=== PATIENT | male | born 1980 | race Caucasian/White ===

== ENCOUNTER 2016-08-12 15:08 | Emergency (ER) | payer MEDICAID, OTHER ==
[2016-08-12] MEDS ORDERED: DIPH/PERTUSS(ACELL)/TETANUS VAC/PF 0.5 ML SYR (>=10YO) IM ONE (15:59)
[2016-08-12] MEDS ORDERED: DIPHENHYDRAMINE HCL 50 MG CAPSULE PO ONE (16:00)
[2016-08-12] MEDS ORDERED: OXYCODONE-ACETAMINOPHEN 5-325 MG TABLET PO ONE (16:01)
--- NOTE | 2016-08-12 16:05 | ER Document Report ---
ED Medical Screen (RME) - General Chief Complaint: Laceration Stated Complaint: LEFT HAND INJURY Time Seen by Provider: 08/12/16 15:59 Notes: Patient injured his hand this afternoon at work. He was holding a piece of aluminum which twisted around and cut the tops of his fourth and fifth fingers of the left hand as well as a small section of the distal lateral palm. Has superficial skin evulsion of the dorsal aspect of fingers #4 and #5. The metal piece also struck the patient in the left flank and upper hip area and he says the pain goes around his left abdomen into the left testicle, although he did not hit the testicle itself. Patient is on Suboxone and did take it early this morning. TRAVEL OUTSIDE OF THE [place] IN LAST 30 DAYS: No - Related Data Allergies/Adverse Reactions: hydrocodone [Hydrocodone] Allergy (Intermediate, Verified 08/12/16 15:13) itch,hives oxycodone [Oxycodone] Allergy (Intermediate, Verified 08/12/16 15:13) itch,hives tramadol [Tramadol] Allergy (Verified 08/12/16 15:13) Past Medical History - Past Medical History Cardiac Medical History: Reports: Hx Hypertension Denies: Hx Coronary Artery Disease, Hx Heart Attack Pulmonary Medical History: Denies: Hx Asthma, Hx Bronchitis, Hx COPD, Hx Pneumonia Neurological Medical History: Reports: Hx Seizures. Denies: Hx Cerebrovascular Accident Renal/ Medical History: Denies: Hx Peritoneal Dialysis Musculoskeltal Medical History: Reports Hx Arthritis - hands,knees,ankles Past Surgical History: Reports: Hx Appendectomy, Hx Orthopedic Surgery - right shoulder/right ankle - Immunizations Immunizations up to date: Yes Hx Diphtheria, Pertussis, Tetanus Vaccination: Yes Physical Exam - Vital signs Vitals: Temp Pulse Resp BP Pulse Ox 98.6 F 103 H 18 170/109 H 100 08/12/16 15:15 08/12/16 15:15 08/12/16 15:15 08/12/16 15:15 08/12/16 15:15 Course - Vital Signs Vital signs: Temp Pulse Resp BP Pulse Ox 98.6 F 103 H 18 170/109 H 100 08/12/16 15:15 08/12/16 15:15 08/12/16 15:15 08/12/16 15:15 08/12/16 15:15
--- NOTE | 2016-08-12 16:22 | ER Document Report ---
ED Wound - General Chief Complaint: Laceration Stated Complaint: LEFT HAND INJURY Time Seen by Provider: 08/12/16 15:59 Notes: Patient is a 28-year-old male presents emergency department complaining of left hand laceration and pain of the left fourth digit at the tip. Patient states that he was using a saw when a piece of metal splint off neck pain and hit his left side. Patient states that he has 2 lacerations on the top of his left hand performed on the fourth digit 1 on the fifth digit he also has a laceration at the base of the pinky on the dorsal aspect. Patient's tetanus up- to-date. Patient states that he is on Suboxone but was cleared by his primary care physician to take narcotics if necessary given his injury. Patient states that he does also have a left flank pain worse with torso movement otherwise denies any hematuria, testicular swelling or bruising. Patient is able to take deep breaths without any chest pain, shortness of breath or dyspnea on exertion. Sensation and motor function intact with range of motion intact TRAVEL OUTSIDE OF THE [place] IN LAST 30 DAYS: No - Related Data Allergies/Adverse Reactions: hydrocodone [Hydrocodone] Allergy (Intermediate, Verified 08/12/16 15:13) itch,hives oxycodone [Oxycodone] Allergy (Intermediate, Verified 08/12/16 15:13) itch,hives tramadol [Tramadol] Allergy (Verified 08/12/16 15:13) Past Medical History - Social History Smoking Status: Current Every Day Smoker Family History: CVA, Hypertension Patient has suicidal ideation: No Patient has homicidal ideation: No - Past Medical History Cardiac Medical History: Reports: Hx Hypertension Denies: Hx Coronary Artery Disease, Hx Heart Attack Pulmonary Medical History: Denies: Hx Asthma, Hx Bronchitis, Hx COPD, Hx Pneumonia Neurological Medical History: Reports: Hx Seizures. Denies: Hx Cerebrovascular Accident Renal/ Medical History: Denies: Hx Peritoneal Dialysis Musculoskeltal Medical History: Reports Hx Arthritis - hands,knees,ankles Past Surgical History: Reports: Hx Appendectomy, Hx Orthopedic Surgery - right shoulder/right ankle - Immunizations Immunizations up to date: Yes Hx Diphtheria, Pertussis, Tetanus Vaccination: Yes Hx Pneumococcal Vaccination: 03/22/10 Review of Systems - Review of Systems Constitutional: No symptoms reported Cardiovascular: No symptoms reported Respiratory: No symptoms reported Musculoskeletal: No symptoms reported Skin: See HPI -: Yes All other systems reviewed and negative Physical Exam - Vital signs Vitals: Temp Pulse Resp BP Pulse Ox 98.6 F 103 H 18 170/109 H 100 08/12/16 15:15 08/12/16 15:15 08/12/16 15:15 08/12/16 15:15 08/12/16 15:15 - Notes Notes: PHYSICAL EXAM GENERAL: Alert, interacts well. HEAD: Normocephalic, atraumatic. EYES: Pupils equal, round, and reactive to light. Extraocular movements intact. ENT: Oral mucosa moist, tongue midline. NECK: Full range of motion. Supple. Trachea midline. LUNGS: Clear to auscultation bilaterally, no wheezes, rales, or rhonchi. No respiratory distress. HEART: Regular rate and rhythm. No murmurs, gallops, or rubs. ABDOMEN: Soft, nondistended, nontender. No guarding, rebound, or rigidity.. Bowel sounds present in all 4 quadrants. EXTREMITIES: Moves all 4 extremities spontaneously. No edema, radial and dorsalis pedis pulses 2/4 bilaterally. No cyanosis. capillary refill < 2 seconds in all UE digits b/l, tenderness to palpation of DIP 4th digit left hand NEUROLOGICAL: Alert and oriented x4. Normal speech. PSYCH: Normal affect, normal mood. SKIN: Warm, dry, normal turgor. No rashes or lesions noted. Skin tear on both 4th and 5th left digits and base of pinky with bleeding controlled, Course - Re-evaluation Re-evalutation: 08/12/16 19:39 patient is a 36 year old male who is HDS, NAD and afebrile. tetanus status updated. carline fracture noted on xray of left 4th digit. patient received 2gm rocephin to cover for open fracture. wounds irrgated with betadine and saline. closed with steri strip and finger placed in finger splint. patient d/c home with follow up wit ortho - Vital Signs Vital signs: Temp Pulse Resp BP Pulse Ox 98.3 F 69 20 167/107 H 100 08/12/16 18:43 08/12/16 18:43 08/12/16 18:43 08/12/16 18:43 08/12/16 18:43 - Laboratory Result Diagrams: 08/12/16 17:25 08/12/16 17:25 Laboratory results interpreted by me: 08/12/16 08/12/16 08/12/16 17:25 17:25 17:35 MCV 98 H Glucose 66 L Direct Bilirubin 0.5 H Total Protein 8.7 H Ur Leukocyte Esterase TRACE H - Diagnostic Test Radiology reviewed: Image reviewed, Reports reviewed Discharge - Discharge Clinical Impression: Open fracture of tuft of distal phalanx of finger Qualifiers: Encounter type: initial encounter Qualified Code(s): S62.639B - Displaced fracture of distal phalanx of unspecified finger, initial encounter for open fracture Condition: Good Disposition: HOME, SELF-CARE Instructions: Fractured Finger ([facility]), Oral Narcotic Medication ([facility]), Prophylactic Antibiotic ([facility]) Additional Instructions: You have been diagnosed with a Carline fracture of the left ring finger Due to your overlying laceration (wound), you have been placed on Augmentin to prevent any bone infection Please follow up with Dr. Yang Miller either this week or next. Prescriptions: Amox Tr/Potassium Clavulanate [Augmentin 875-125 Tablet] 1 tab PO BID 10 Days Ibuprofen [Motrin 800 mg Tablet] 800 mg PO Q8H PRN #30 tab PRN Reason: Oxycodone HCl/Acetaminophen [Percocet 5-325 mg Tablet] 1 - 2 tab PO Q4H PRN #15 tablet PRN Reason: Forms: Elevated Blood Pressure Referrals: STAN MCDONALD MD [Primary Care Provider] - Follow up as needed YANG MILLER DO [ACTIVE STAFF] - Follow up in 3-5 days
--- NOTE | 2016-08-12 16:52 | RADIOLOGY REPORT (SQ) ---
EXAM DESCRIPTION: HAND LEFT 3 VIEWS COMPLETED DATE/TIME: 08/12/2016 4:39 pm REASON FOR STUDY: Hit hand at work. Dorsal Fourth and Fifth Fingers COMPARISON: None. EXAM PARAMETERS: NUMBER OF VIEWS: Three views. TECHNIQUE: AP, lateral and oblique radiographic images acquired of the left hand. LIMITATIONS: None. FINDINGS: MINERALIZATION: Normal. BONES: Distal tuft fracture of the right 4th distal phalanx. No other fractures identified. No disl ocation. JOINTS: No effusions. SOFT TISSUES: Mild soft tissue swelling. No radiopaque foreign body. OTHER: No other significant finding. IMPRESSION: Distal tuft fracture of the right 4th distal phalanx. No other fractures identified. TECHNICAL DOCUMENTATION: JOB ID: [id number] [employer]- All Rights Reserved
[2016-08-12] MEDS ORDERED: LIDOCAINE 4%/TETRACAINE 0.5%/EPI 0.18% 5 ML TOPICAL SOLN TOP ONE (17:04)
[2016-08-12] MEDS ORDERED: CEFTRIAXONE 2 GM/D5W RTU 50 ML IV ONE (17:24)
[2016-08-12] MEDS ORDERED: MORPHINE SULFATE 10 MG/ML INJ IV ONE (17:29)
[2016-08-12 17:39] LABS: ABSOLUTE MONOCYTES (AUTO) 0.5 10^3/uL (0.1-1.4); ABSOLUTE NEUT (AUTO) 5.2 10^3/uL (1.7-8.2); BASOPHILS % (AUTO) 0.5 % (0-2); EOSINOPHILS % (AUTO) 0.5 % (0-6); HEMOGLOBIN 15.9 g/dL (13.5-17.0); HGB HCT DIFFERENCE -0.3; MEAN CORPUSCULAR HEMOGLOBIN 32.7 pg (27.0-33.4); MEAN CORPUSCULAR HGB CONC 33.2 g/dL (32.0-36.0); MEAN CORPUSCULAR VOLUME 98 fl (80-97); MONOCYTES % (AUTO) 6.9 % (3-13); RED BLOOD COUNT 4.88 10^6/uL (4.35-5.55); SEGMENTED NEUTROPHILS % (AUTO) 67.1 % (42-78); WHITE BLOOD COUNT 7.8 10^3/uL (4.0-10.5)
[2016-08-12 17:58] LABS: ALANINE AMINOTRANSFERASE 35 U/L (21-72); ALKALINE PHOSPHATASE 93 U/L (38-126); ANION GAP 12 (5-19); ASPARTATE AMINO TRANSFERASE 36 U/L (17-59); BILIRUBIN,DIRECT 0.5 mg/dL (0.0-0.4); BILIRUBIN,TOTAL 0.8 mg/dL (0.2-1.3); BLOOD UREA NITROGEN 13 mg/dL (7-20); CALCIUM 10.1 mg/dL (8.4-10.2); CARBON DIOXIDE 27 mmol/L (22-30); CHLORIDE 102 mmol/L (98-107); CREATININE RESULT 0.78 mg/dL (0.52-1.25); GLUCOSE 66 mg/dL (75-110); SODIUM 141.3 mmol/L (137-145); TOTAL PROTEIN 8.7 g/dL (6.3-8.2)
[2016-08-12 18:07] LABS: APPEARANCE,URINE CLEAR; BILIRUBIN,URINE NEGATIVE (NEGATIVE); GLUCOSE, URINE NEGATIVE (NEGATIVE); KETONES,URINE NEGATIVE (NEGATIVE); LEUKOCYTE ESTERASE,URINE TRACE (NEGATIVE); NITRITE,URINE NEGATIVE (NEGATIVE); PROTEIN,URINE NEGATIVE (NEGATIVE); UROBILINOGEN,URINE NEGATIVE mg/dL (<2.0)
[2016-08-12 18:45] VITALS: BP 167/107
== END 2016-08-12 18:54 | disposition home or self-care (01) ==
LOC: ER 15:08
DX: S62.639B Displaced fracture of distal phalanx of unspecified finger, initial encounter for open fracture (principal); Z79.899 Other long term (current) drug therapy; F17.200 Nicotine dependence, unspecified, uncomplicated; W45.8XXA Other foreign body or object entering through skin, initial encounter
CPT/HCPCS: 99283; 90471; 96375; 96365; 36415; 85025; 80053; 81001; 73130; 90715; J2270; J3490; J0696

== ENCOUNTER 2017-07-01 16:32 | Emergency (ER) | payer SELFPAY ==
[2017-07-01] MEDS ORDERED: METHYLPREDNISOLONE INJ 125 MG/2 ML SDV IV ONE (17:29)
[2017-07-01] MEDS ORDERED: NORMAL SALINE 1000 ML 1,000 ML IV ONE (17:29)
[2017-07-01] MEDS ORDERED: KETOROLAC TROMETHAMINE INJ/PF 30 MG/1 ML SDV IV ONE (17:29)
[2017-07-01] MEDS ORDERED: CLINDAMYCIN 300 MG/D5W RTU 300 MG/50 ML RTUPB IV ONE (17:30)
--- NOTE | 2017-07-01 17:35 | ER Document Report ---
ED Medical Screen (RME) - General Chief Complaint: Breathing Difficulty Stated Complaint: DIFFICULTY BREATHING Time Seen by Provider: 07/01/17 17:26 Notes: 37-year-old male patient on Suboxone. He was diagnosed with strep throat and started treatment 2 days ago. He now complains of increased swelling and difficulty swallowing. He is still able to phonate. He does not have trismus. He does have swelling of the left tonsillar and posterior pharyngeal region extending down the throat on exam. There is tender swelling to glands in the left anterior cervical/submandibular region. I have greeted and performed a rapid initial assessment of this patient. A comprehensive ED assessment and evaluation of the patient, analysis of test results and completion of the medical decision making process will be conducted by additional ED providers. TRAVEL OUTSIDE OF THE [place] IN LAST 30 DAYS: No - Related Data Allergies/Adverse Reactions: hydrocodone [Hydrocodone] Allergy (Intermediate, Verified 07/01/17 16:33) itch,hives oxycodone [Oxycodone] Allergy (Intermediate, Verified 07/01/17 16:33) itch,hives tramadol [Tramadol] Allergy (Verified 07/01/17 16:33) Past Medical History - Social History Frequency of alcohol use: Rare Drug Abuse: Other - Past Medical History Cardiac Medical History: Reports: Hx Hypertension Denies: Hx Coronary Artery Disease, Hx Heart Attack Pulmonary Medical History: Denies: Hx Asthma, Hx Bronchitis, Hx COPD, Hx Pneumonia Neurological Medical History: Reports: Hx Seizures. Denies: Hx Cerebrovascular Accident Renal/ Medical History: Denies: Hx Peritoneal Dialysis Musculoskeltal Medical History: Reports Hx Arthritis - hands,knees,ankles Past Surgical History: Reports: Hx Appendectomy, Hx Orthopedic Surgery - right shoulder/right ankle - Immunizations Immunizations up to date: Yes Hx Diphtheria, Pertussis, Tetanus Vaccination: Yes Physical Exam - Vital signs Vitals: Temp Pulse Resp BP Pulse Ox 99.5 F 115 H 18 149/93 H 98 07/01/17 16:36 07/01/17 16:36 07/01/17 16:36 07/01/17 16:36 07/01/17 16:36 Course - Vital Signs Vital signs: Temp Pulse Resp BP Pulse Ox 99.5 F 115 H 18 149/93 H 98 07/01/17 16:36 07/01/17 16:36 07/01/17 16:36 07/01/17 16:36 07/01/17 16:36
[2017-07-01 18:01] LABS: ABSOLUTE LYMPHOCYTES (AUTO) 0.8 10^3/uL (0.5-4.7); ABSOLUTE MONOCYTES (AUTO) 0.6 10^3/uL (0.1-1.4); ABSOLUTE NEUT (AUTO) 9.7 10^3/uL (1.7-8.2); BASOPHILS % (AUTO) 0.1 % (0-2); EOSINOPHILS % (AUTO) 0.1 % (0-6); HEMATOCRIT 42.2 % (37.9-51.0); HEMOGLOBIN 14.3 g/dL (13.5-17.0); LYMPHOCYTES % (AUTO) 6.9 % (13-45); MEAN CORPUSCULAR HEMOGLOBIN 32.7 pg (27.0-33.4); MEAN CORPUSCULAR VOLUME 96 fl (80-97); MONOCYTES % (AUTO) 5.2 % (3-13); PLATELET COUNT 150 10^3/uL (150-450); RED BLOOD COUNT 4.39 10^6/uL (4.35-5.55); RED CELL DISTRIBUTION WIDTH 14.4 % (11.5-14.0); SEGMENTED NEUTROPHILS % (AUTO) 87.7 % (42-78); TOTAL CELLS COUNTED % (AUTO) 100 %
[2017-07-01 18:22] LABS: ALANINE AMINOTRANSFERASE 23 U/L (21-72); ALBUMIN 4.1 g/dL (3.5-5.0); ALKALINE PHOSPHATASE 137 U/L (38-126); ANION GAP 14 (5-19); ASPARTATE AMINO TRANSFERASE 24 U/L (17-59); BILIRUBIN,DIRECT 0.5 mg/dL (0.0-0.4); BILIRUBIN,TOTAL 0.6 mg/dL (0.2-1.3); BLOOD UREA NITROGEN 24 mg/dL (7-20); CALCIUM 9.6 mg/dL (8.4-10.2); CARBON DIOXIDE 26 mmol/L (22-30); CHLORIDE 101 mmol/L (98-107); GLUCOSE 91 mg/dL (75-110); POTASSIUM 3.8 mmol/L (3.6-5.0); SODIUM 140.7 mmol/L (137-145); TOTAL PROTEIN 7.3 g/dL (6.3-8.2)
--- NOTE | 2017-07-01 18:38 | RADIOLOGY REPORT (SQ) ---
EXAM DESCRIPTION: CT SOFT TISSUE NECK WITH COMPLETED DATE/TIME: 07/01/2017 6:17 pm REASON FOR STUDY: Right peritonsillar and pharyngeal swelling COMPARISON: None. TECHNIQUE: Post IV contrasted scanning from skull base through lung apices with review of bone, soft tissue and lung windows. Reconstructed coronal and sagittal MPR images reviewed. All images stored on PACS. All CT scanners at this facility use dose modulation, iterative reconstruction, and/or weight based d osing when appropriate to reduce radiation dose to as low as reasonably achievable (ALARA). [facility]: Dose Right [facility]: CareDose [facility]: Dose Right [facility]: Teradose 4D [facility]: Cherrish CONTRAST TYPE AND DOSE: contrast/concentration: Isovue 370.00 mg/ml; Total Contrast Delivered: 75.0 ml; Total Saline Delivered: 55.0 ml RENAL FUNCTION: None required. The patient is less than 50 years old. RADIATION DOSE: CT Rad equipment meets quality standard of care and radiation dose reduction techniq ues were employed. CTDIvol: 8.8 mGy. DLP: 286 mGy-cm. . LIMITATIONS: None. FINDINGS: SKULL BASE: Intact. MAJOR SALIVARY GLANDS: No solid or cystic masses. LYMPHADENOPATHY: Scattered mild reactive left cervical adenopathy. MUCOSAL MASSES OR ASYMMETRY: 2.5 x 2.0 x 1.6 cm irregular shaped low-density fluid with mild rim enha ncement in the lateral left peritonsillar location, likely early abscess formation. There is adjacen t inflammatory involvement with diffuse mucosal swelling in the left vallecula, epiglottis, and pyrif orm sinus partially obstructing the airway, though it remains widely patent. VASCULAR STRUCTURES: The major vessels are patent. LUNG APICES: Clear. BONES: Intact. THYROID: Normal size. No masses. PARANASAL SINUSES: Clear. OTHER: No other significant finding. IMPRESSION: 2.5 x 2.0 x 1.6 cm irregular shaped low-density fluid with mild rim enhancement in the l ateral left peritonsillar location, likely early abscess formation. There is adjacent inflammatory i nvolvement with diffuse mucosal swelling in the left vallecula, epiglottis, and pyriform sinus partia lly obstructing the airway, though it remains widely patent. ENT consultation is recommended. TECHNICAL DOCUMENTATION: JOB ID: [id number] Quality ID # [id number]: Final reports with documentation of one or more dose reduction techniques (e.g., Au tomated exposure control, adjustment of the mA and/or kV according to patient size, use of iterative reconstruction technique) 2010 [employer]- All Rights Reserved Reading location - IP/workstation name: [email or web address]
[2017-07-01] MEDS ORDERED: MORPHINE SULFATE 10 MG/ML INJ IV ONE (18:46)
--- NOTE | 2017-07-01 18:58 | ER Document Report ---
ED ENT - General Chief Complaint: Breathing Difficulty Stated Complaint: DIFFICULTY BREATHING Time Seen by Provider: 07/01/17 17:26 Mode of Arrival: Ambulatory Information source: Patient TRAVEL OUTSIDE OF THE [place] IN LAST 30 DAYS: No - HPI Patient complains to provider of: Throat problem Onset: Other - 3 days Onset/Duration: Persistent, Worse Quality of pain: Achy Severity: Moderate Location of pain: Throat Associated symptoms: Difficulty swallowing, Fever, Sore throat Similar symptoms previously: No Recently seen / treated by doctor: Yes Notes: Patient is a 37-year-old male presenting to the emergency room today complaining of throat pain with difficulty swallowing, symptoms have been present for 3 days, he has had a fever at times as well, was diagnosed with strep pharyngitis and started on amoxicillin but his symptoms have gotten worse - Related Data Allergies/Adverse Reactions: hydrocodone [Hydrocodone] Allergy (Intermediate, Verified 07/01/17 16:33) itch,hives oxycodone [Oxycodone] Allergy (Intermediate, Verified 07/01/17 16:33) itch,hives tramadol [Tramadol] Allergy (Verified 07/01/17 16:33) Past Medical History - General Information source: Patient - Social History Smoking Status: Current Every Day Smoker Frequency of alcohol use: Rare Drug Abuse: Other Family History: CVA, Hypertension Patient has suicidal ideation: No Patient has homicidal ideation: No - Past Medical History Cardiac Medical History: Reports: Hx Hypertension Denies: Hx Coronary Artery Disease, Hx Heart Attack Pulmonary Medical History: Denies: Hx Asthma, Hx Bronchitis, Hx COPD, Hx Pneumonia Neurological Medical History: Reports: Hx Seizures. Denies: Hx Cerebrovascular Accident Renal/ Medical History: Denies: Hx Peritoneal Dialysis Musculoskeltal Medical History: Reports Hx Arthritis - hands,knees,ankles Past Surgical History: Reports: Hx Appendectomy, Hx Orthopedic Surgery - right shoulder/right ankle - Immunizations Immunizations up to date: Yes Hx Diphtheria, Pertussis, Tetanus Vaccination: Yes Hx Pneumococcal Vaccination: 03/22/10 Review of Systems - Review of Systems Constitutional: Fever EENT: See HPI Cardiovascular: No symptoms reported Respiratory: No symptoms reported Gastrointestinal: No symptoms reported Genitourinary: No symptoms reported Male Genitourinary: No symptoms reported Musculoskeletal: No symptoms reported Skin: No symptoms reported Hematologic/Lymphatic: No symptoms reported Neurological/Psychological: No symptoms reported -: Yes All other systems reviewed and negative Physical Exam - Vital signs Vitals: Temp Pulse Resp BP Pulse Ox 99.5 F 115 H 18 149/93 H 98 07/01/17 16:36 07/01/17 16:36 07/01/17 16:36 07/01/17 16:36 07/01/17 16:36 Interpretation: Tachycardic - General General appearance: Appears well, Alert - HEENT Head: Normocephalic, Atraumatic Eyes: Normal Conjunctiva: Normal Extraocular movements intact: Yes Eyelashes: Normal Pupils: PERRL Pharynx: Erythema, Exudate, Peritonsillar abscess - Left side, Tonsillar hypertrophy - Left greater than right - Respiratory Respiratory status: No respiratory distress Chest status: Nontender Breath sounds: Normal Chest palpation: Normal - Cardiovascular Rhythm: Regular Heart sounds: Normal auscultation Murmur: No - Abdominal Inspection: Normal Distension: No distension Bowel sounds: Normal Tenderness: Nontender Organomegaly: No organomegaly - Back Back: Normal, Nontender - Extremities General upper extremity: Normal inspection, Nontender, Normal color, Normal ROM , Normal temperature General lower extremity: Normal inspection, Nontender, Normal color, Normal ROM , Normal temperature, Normal weight bearing. No: Flor's sign - Neurological Neuro grossly intact: Yes Cognition: Normal Orientation: AAOx4 Burney Coma Scale Eye Opening: Spontaneous Burney Coma Scale Verbal: Oriented Anisa Coma Scale Motor: Obeys Commands Anisa Coma Scale Total: 15 Speech: Normal Motor strength normal: LUE, RUE, LLE, RLE Sensory: Normal - Psychological Associated symptoms: Normal affect, Normal mood - Skin Skin Temperature: Warm Skin Moisture: Dry Skin Color: Normal Course - Re-evaluation Re-evalutation: 07/01/17 19:22 A call was placed to [facility], spoke with Radha Resendiz, requested callback from ENT for consultation and possible transfer 07/01/17 19:37 Patient discussed with ENT in [place], Dr. Elder, who recommends patient receive 1 more liter of IV fluids, have him start swallowing his saliva instead of spitting it out, then he can be started on Augmentin as well as prednisone, and follow-up in his office at 2 PM tomorrow afternoon for further evaluation and treatment with possible incision and drainage 07/01/17 23:02 Patient does report feeling significant improvement in the swelling in his throat since receiving IV steroids, he is able to swallow with minimal difficulty, patient was advised to follow-up tomorrow with ENT in [place] and was provided with information to do so, advised to return if symptoms worsen, patient and spouse at bedside acknowledge understanding and agreement with this plan - Vital Signs Vital signs: Temp Pulse Resp BP Pulse Ox 99.5 F 115 H 19 124/89 H 100 07/01/17 16:36 07/01/17 16:36 07/01/17 20:01 07/01/17 20:00 07/01/17 20:01 - Laboratory Result Diagrams: 07/01/17 17:42 07/01/17 17:42 Laboratory results interpreted by me: 07/01/17 07/01/17 17:42 17:42 WBC 11.0 H RDW 14.4 H Seg Neutrophils % 87.7 H Lymphocytes % 6.9 L Absolute Neutrophils 9.7 H BUN 24 H Direct Bilirubin 0.5 H Alkaline Phosphatase 137 H - Diagnostic Test Radiology reviewed: Image reviewed, Reports reviewed Discharge - Discharge Clinical Impression: Peritonsillar abscess Condition: Stable Disposition: HOME, SELF-CARE Instructions: Abscess ([facility]) Additional Instructions: Follow-up with Dr. Elder, Otolaryngology in [place]. He will see you in his office at 2 PM tomorrow Wednesday, July 02, 2017. His office can be reached at [phone] if you have any questions. Return to the nearest emergency room immediately if symptoms worsen or you have any additional concerns. Prescriptions: Amox Tr/Potassium Clavulanate [Augmentin 875-125 Tablet] 1 tab PO BID #20 tablet Prednisone 20 mg PO TID #9 tablet Referrals: ERICA WOODS MD [Primary Care Provider] - Follow up as needed
[2017-07-01] MEDS ORDERED: FENTANYL CITRATE INJ/PF 100 MCG/2 ML AMPUL ONE (19:28)
[2017-07-01] MEDS ORDERED: PHENOL/SODIUM PHENOLATE 100 SPRAY/177 ML BOTTLE PO ONE (19:36)
[2017-07-01 20:55] VITALS: BP 124/89
== END 2017-07-01 20:55 | disposition home or self-care (01) ==
LOC: ER 16:32
DX: J36 Peritonsillar abscess (principal); R13.10 Dysphagia, unspecified; R50.9 Fever, unspecified; F17.200 Nicotine dependence, unspecified, uncomplicated; I10 Essential (primary) hypertension
CPT/HCPCS: 99284; 96375; 96365; 36415; 87040; 85025; 80053; 70491; J3490 ×2; J2930; J1885; J2270; J7030